=== PATIENT | male | born 1960 | race Two or more races ===

== ENCOUNTER 2024-11-18 08:50 | Day surgery (SDC) | payer OTHER, MEDICAID ==
[~2024-11-18] VITALS: Ht 177.8 cm; Wt 93.0 kg
[~2024-11-18 08:50] MED LIST: ATOR10TA52 PO; NAP500T PO; PANT40TA2 PO
[2024-11-18] MEDS ORDERED: ceFAZolin 2 GM/D5W50ml 50 ML IV ONE (09:06)
[2024-11-18] MEDS ORDERED: HEPARIN SODIUM (PORCINE) 5000 UNITS/ML 1ML VIAL ONE (09:21)
[2024-11-18] MEDS: HEPARIN SODIUM (PORCINE) 5000 UNITS/ML 1ML VIAL SC ONE (09:30)
[2024-11-18] MEDS ORDERED: hydrALAZINE HCL 20 MG/ML VL IV PRN (10:00)
[2024-11-18] MEDS ORDERED: HYDROmorphone HCL 2 MG/ML VL/or syr IV PRN (10:00)
[2024-11-18] MEDS ORDERED: fentaNYL CITRATE 100 MCG/2 ML VL ONE (10:06)
[2024-11-18] MEDS ORDERED: MIDAZOLAM HCL 2MG/2ML 2ml VIAL (1mg/ml) ONE (10:06)
[2024-11-18] MEDS ORDERED: PROPOFOL 10 MG/ML 20 ML IV ONE (10:07)
[2024-11-18] MEDS ORDERED: ePHEDrine SULFATE 50 MG/ML AMP ONE (10:26)
[2024-11-18] MEDS ORDERED: SUGAMMADEX 200mg/2ml Vial (100MG/ML) IV ONE (10:27)
[2024-11-18] MEDS: BUPIVACAINE 0.5% MPF INJ 30ML SDV IJ ONE (10:33)
[2024-11-18] MEDS: LIDOCAINE 1% HCL (LOCAL ANESTH.) INJ 20ML MDV ONE (10:34)
[2024-11-18] MEDS ORDERED: HYDROmorphone HCL 2 MG/ML VL/or syr ONE (10:45)
[2024-11-18 11:23] VITALS: PULSE 88; RESP 16; TEMP 98.2; O2SAT 93
[2024-11-18 11:38] VITALS: PULSE 81; RESP 15; O2SAT 100
--- NOTE | 2024-11-18 11:43 | DVHOP ---
DATE OF SURGERY: 11/18/2024 PREOPERATIVE DIAGNOSIS: Left inguinal hernia. POSTOPERATIVE DIAGNOSIS: Left inguinal hernia. PROCEDURES: Left ilioinguinal nerve block and left inguinal hernia repair with mesh. SURGEON: Regan Terrell MD NUCLEAR CHEMISTRY TECHNICIAN: None. ANESTHESIOLOGIST: Trace Moraes CRNA ANESTHESIA: General by means of endotracheal intubation. INTRAOPERATIVE FINDINGS: Indirect and direct left inguinal hernia. ESTIMATED BLOOD LOSS: Minimal. IV FLUIDS: Per anesthesia charting. URINE OUTPUT: Not recorded given Gomez catheter was not inserted. DRAINS: None. IMPLANTS: Large polypropylene plug and patch. SPECIMENS: None. COMPLICATIONS: None. Procedure well tolerated and transferred to recovery room in stable condition. INDICATIONS FOR PROCEDURE: The patient is a 64-year-old male with a left inguinal hernia who was recommended and electively scheduled for a left inguinal hernia repair with mesh and left ilioinguinal nerve block. The procedure, risks, and benefits were explained in a detailed and extensive fashion. The patient was made aware of potential risks as well as complications and benefits were explained. All questions were answered. He understood and agreed to proceed. DESCRIPTION OF PROCEDURE: The patient was met in the preoperative holding area where the left groin was marked indicating the correct side of the surgery. The patient had no questions at that time. The patient was then transported to the operating room where he was placed in a dorsal decubitus incision on the operating room table. Once adequate anesthesia was achieved, the abdominopelvic region was widely clipped from all hair surrounding the surgical field. He received prophylactic antibiotics as well as prophylactic heparin. The abdomen and pelvic regions were widely prepped and draped in the usual sterile fashion. My attention was directed towards the left inguinal region where an ilioinguinal nerve block was performed using 1% lidocaine/0.5% Marcaine. The operative site was also anesthetized with a few milliliters of mentioned solution. A transverse left groin incision was made. The dermis and subcutaneous tissue were incised to the level of the external oblique aponeurosis. A separate incision was made in the external oblique aponeurosis and was carried cephalad as well as caudally towards the external ring with Metzenbaum scissors without injury to underlying structure. The ilioinguinal nerve was identified. It was carefully dissected and retracted away from the surgical field. The spermatic cord structures were dissected at the level of the pubic tubercle. The cremasteric fibers were dissected, exposing the spermatic cord structures as well as an indirect inguinal hernia sac. The inguinal hernia sac was carefully dissected from the spermatic cord structures and to the level of the internal ring. The hernia sac was opened at the apex and inspected. There was no evidence of any intra-abdominal organs. The hernia sac was twisted on its own axis and suture ligated at the level of the internal ring with a 0 Vicryl suture. The excess of the hernia sac was excised and discarded. At this time, I dedicated my attention to inspecting the direct space, identifying a reducible direct inguinal hernia. A large polypropylene plug was placed through the direct space and fixated to the surrounding structures using 0 PDS sutures. The polypropylene patch was then placed in an onlay fashion securing to the pubic tubercle using 0 PDS suture without incorporating bone or periosteum. Several intermittent 0 PDS sutures were utilized to secure the mesh laterally against the shelving edge of the inguinal ligament. The same was done medially to the transversus abdominis and aponeurotic arch. The tails of the mesh were secured around the spermatic cord structures as well as the ilioinguinal nerve with 0 PDS sutures, paying careful attention not to strangulate the spermatic cord structures. The ilioinguinal nerve was returned to its anatomical position. The wound was inspected. There were no areas of active bleeding or any injury to the spermatic cord structure. The external oblique aponeurosis was closed with a running 3-0 Vicryl suture while paying careful attention not to incorporate the spermatic cord structures or the ilioinguinal nerve. The Jessica's layer was then closed with interrupted 3-0 Vicryl sutures. The skin was closed with 4-0 Monocryl in a subcuticular fashion. The wound was washed and dried and glue was applied. The patient tolerated well the procedure. There were no complications. He was successfully extubated in the operating room and transferred to the recovery room in stable condition. Regan Terrell MD WBCecilia/HARJIT TID: [id number] RECEIPT: [id number]
[2024-11-18] MEDS: ONDANSETRON HCL 4 MG/2 ML VIAL IV ONE (12:28)
[2024-11-18] MEDS: METOCLOPRAMIDE HCL 5MG/ml INJ 2ml VIAL IV PRN (12:43)
[2024-11-18 13:03] VITALS: BP 148/88; PULSE 71; RESP 12; O2SAT 94
== END 2024-11-18 13:13 | disposition home or self-care (01) ==
LOC: SUR 08:50
DX: K40.90 Unilateral inguinal hernia, without obstruction or gangrene, not specified as recurrent (principal); K21.9 Gastro-esophageal reflux disease without esophagitis; I10 Essential (primary) hypertension; E78.00 Pure hypercholesterolemia, unspecified; Z79.899 Other long term (current) drug therapy; Z98.890 Other specified postprocedural states
CPT/HCPCS: 49505; 86850; 86900; 86901; J0690; J1171; J1644; J2003; J2250; J2405; J2704; J2765; J3010; J3490; 88302